=== PATIENT | female | born 1990 | race African-American/Black ===

== ENCOUNTER 2016-08-10 04:48 | Emergency (ER) | payer SELFPAY ==
[2016-08-10 04:55] VITALS: BMI 27.9
[2016-08-10] MEDS ORDERED: ZOFRAN INJ 4 MG VIAL ONE (04:58)
[2016-08-10] MEDS ORDERED: MORPHINE SULFATE INJ 4 MG ONE (04:58)
--- NOTE | 2016-08-10 04:59 | DR.GENAD ---
HPI - PCP Primary Care Physician: ARTURO - HPI Comment HPI Comment: PATIENT WAS FRYING [place] [employer]RIES WHEN SHE BURN THE BACK OF HER HAND WITH HOT GREASE. BLISTERS PRESENT. TD NOT UTD. - Complaint/Symptoms Chief Complaint Doctors Comments: GREASE BURN TO LEFT HAND LESS THAN AN HOUR AGO. Chief Complaint:: HOT GREASE ON LEFT HAND ABOUT 30 MINS AGO - Nurses notes reviewed Nurses Notes Review: Yes - Source History Provided: Patient - Mode of Arrival Mode of Arrival: Ambulatory - Timing Onset of Chief Complaint: 08/10/16 Came on: Suddenly - Duration Duration: Constant Duration: Minutes - Severity Severity: Moderate PMH - PMH Past Medical History: No Past Medical History: Hypertension Past Surgical History: No Surgical History: Unknown - Family History History of Family Medical Conditions: Yes Family Medical History: Cancer - Social History Does patient currently use any type of tobacco product: No Have you used tobacco products in the last 12 months: No Type of Tobacco Use: None Does any household member use tobacco: No Alcohol Use: None Do you use any recreational Drugs:: No Lives With: Family Lives Where: Home - infectious screening In the last 2 months have you had wt loss of >10#?: NO Have you had fever, night sweats or hemotysis?: No Have you traveled outside the country in the last 6 months?: No Isolation: Standard ROS - Review of Systems Constitutional: No Symptoms Reported Eyes: No Symptoms Reported ENTM: No Symptoms Reported Respiratoy: No Symptoms Reported Cardiovascular: No Symptoms Reported Gastrointestinal/Abdominal: No Symptoms Reported Genitourinary: No Symptoms Reported Neurological: No Symptoms Reported Musculoskeletal: Left, Hand (2ND DEGREE BURN BACK OF LEFT HAND.) Integumentary: Other (2ND DEGREE BURN BACK OF LEFT HAND.) Hematologic/Lymphatic: No Symptoms Reported Endocrine: No Symptoms Reported All Other Systems: Reviewed and Negative PE - Vital Signs Vitals: Temperature 98.6 F Pulse Rate 105 Respiratory Rate 24 Blood Pressure 128/81 O2 Sat by Pulse Oximetry 100 - General Limitations: No Limitations General Appearance: Alert - Head Head Exam: Normal Inspection - Eyes Eye exam: Normal Appearance - ENT ENT Exam: Normal Exam External Ear Exam: Normal External Inspection Mouth Exam: Normal Inspection Throat Exam: Normal Inspection - Neck Neck Exam: Trachea Midline - Chest Chest Inspection: Symmetric Chest Wall Rise - Respiratory Respiratory Exam: Bilateral Clear to Auscultation - Cardiovascular Cardiovascular Exam: Regular Rate, Normal Rhythm, Normal Heart Sounds - Abdominal Exam Abdominal Exam: Normal Inspection - Extremities Extremities Exam: Tenderness (2ND DEGREE BURN BACK OF LEFT HAND.) - Back Back Exam: Normal Inspection - Neurologic Neurological Exam: Alert, Oriented X3 - Psychiatric Psychiatric Exam: Anxious - Skin Skin Exam: Erythema, Other (2ND DEGREE BURN LEFT HAND.) MDM - Differential Diagnosis Differential Diagnosis: 2ND DEGREE BURN BACK LEFT HAND. Course - Consultation Consultation Comments: [facility] WILL SEE PATIENT TODAY 10: 30AM AT THEIR CLIN[facility] IN [place]. - Education/Counseling Education/Counseling: Patient, Education Educated On: Diagnosis, Needs for Follow Up - Diagnosis Discharge Problem: Second degree burn of left hand - Discharge Plan Disposition: 01 HOME, SELF-CARE Condition: Stable Prescriptions: Hydrocodone-Acet 7.5 mg/325 mg [[place] 7.5/325 mg Tab] 1 tab PO Q6H PRN #20 tab PRN Reason: Pain - Follow ups/Referrals Follow ups/Referrals: NFD,None [Primary Care Provider] - 3 days - Instructions Instructions: Second-Degree Burn, Burn Care, Blisters Additional Instructions: RETURN TO ED IF WORSE. [facility] IN [place] WILL SEE YOU BETWEEN 8am- 10am this morning, nothing by mouth till your evaluation.
[2016-08-10] MEDS ORDERED: ZOFRAN INJ 4 MG VIAL IM ONE (05:04)
[2016-08-10] MEDS ORDERED: MORPHINE SULFATE INJ 4 MG IM ONE (05:04)
[2016-08-10 05:06] VITALS: BP 128/81
[2016-08-10] MEDS ORDERED: NORCO 7.5/325 MG TAB PO ONE (05:36)
[2016-08-10] MEDS ORDERED: NORCO 7.5/325 MG TAB ONE (05:37)
== END 2016-08-10 05:49 | disposition home or self-care (01) ==
LOC: ER 05:00
PROC: 2W29X4Z Dressing of Left Upper Extremity using Bandage (ICD-10-PCS; principal; 2016-08-10)
DX: T23.202A Burn of second degree of left hand, unspecified site, initial encounter (principal); X12.XXXA Contact with other hot fluids, initial encounter; Y92.9 Unspecified place or not applicable
CPT/HCPCS: 16020; 96372; 99282; J2270; J2405

== ENCOUNTER 2019-06-05 17:44 | Inpatient (IN) ==
[2019-06-05 18:10] LABS: APPEARANCE,URINE CLEAR (CLEAR); BILIRUBIN,URINE NEGATIVE (NEGATIVE); BLOOD/HEMOGLOBIN,URINE NEGATIVE (NEGATIVE); COLOR,URINE YELLOW (YELLOW); GLUCOSE, URINE NEGATIVE (NEGATIVE); KETONES,URINE 3+ (NEGATIVE); LEUKOCYTE ESTERASE ,URINE 2+ (NEGATIVE); NITRITES,URINE NEGATIVE (NEGATIVE); PH,URINE 6.5 (5.0 - 8.0); PROTEIN,URINE 2+ (NEGATIVE); UROBILINOGEN,URINE NORMAL (NORMAL)
[2019-06-05 18:17] LABS: AMNISURE ROM TEST THERE IS A RUPTURE (NO RUPTURE)
[2019-06-05 18:19] LABS: BACTERIA,URINE 1+ /HPF (NEGATIVE); SQUAMOUS EPITHELIAL CELL,UR MODERATE /HPF (NEGATIVE)
[2019-06-05] MEDS ORDERED: FENTANYL INJ 100 mcg ONE (18:45)
[2019-06-05] MEDS ORDERED: D5LR 1L W PITOCIN 10 UNITS/L 10 UNITS/1,000 ML BAG IV ONE (18:45)
[2019-06-05] MEDS ORDERED: PITOCIN ONE (18:46)
[2019-06-05] MEDS ORDERED: D5 1/2 NS 1L W PITOCIN 20 UNITS/L 20 UNITS/1,000 ML BAG IV ONE (18:46)
[2019-06-05] MEDS ORDERED: NAROPIN EPIDURAL 0.2% + FENTANYL 90MCG 60 ML EPI ONE (18:46)
[2019-06-05] MEDS ORDERED: D5 1/2 NS 1000 ML 1,000 ML IV ONE (18:46)
[2019-06-05] MEDS ORDERED: D5LR 1L W PITOCIN 10 UNITS/L 10 UNITS/1,000 ML BAG IV PRN (19:18)
[2019-06-05] MEDS ORDERED: PITOCIN IVP ONE (19:18)
[2019-06-05] MEDS ORDERED: PHENERGAN INJ 25 MG IM PRN (19:18)
[2019-06-05] MEDS ORDERED: NUBAIN INJ 200 MG VIAL MULTIDOSE IVP PRN (19:18)
[2019-06-05] MEDS ORDERED: REGLAN INJ 10 MG VIAL IVP PRN (19:18)
[2019-06-05] MEDS ORDERED: MORPHINE SULFATE INJ 2 MG INJ IVP PRN (19:18)
[2019-06-05 19:31] LABS: BASOPHILS # (AUTO) 0.2 X10^3/uL (0.0-0.1); BASOPHILS % (AUTO) 3.1 % (0.2-1.0); EOSINOPHILS % (AUTO) 0.9 % (0.9-2.9); HEMATOCRIT 35.7 % (36.0-47.0); HEMOGLOBIN 11.9 g/dL (12.0-16.0); LYMPHOCYTES # (AUTO) 0.9 X10^3/uL (1.3-2.9); LYMPHOCYTES % (AUTO) 17.8 % (21.0-51.0); MEAN CORPUSCULAR HGB CONC 33.3 g/dL (33.0-35.0); MEAN CORPUSCULAR VOLUME 87.1 fL (80.0-100.0); MEAN PLATELET VOLUME 9.1 fL (7.4-11.0); MONOCYTES # (AUTO) 0.1 x10^3/uL (0.3-0.8); MONOCYTES % (AUTO) 2.6 % (0.0-13.0); NEUTROPHILS # (AUTO) 3.6 x10^3/uL (2.2-4.8); NEUTROPHILS % (AUTO) 75.6 % (42.0-75.0); PLATELET COUNT 265 X10^3/uL (150.0-450.0); RED CELL DISTRIBUTION WIDTH 16.6 % (11.6-16.5); WHITE BLOOD COUNT 4.8 X10^3/uL (3.6-10.0)
[2019-06-05 19:33] LABS: BLOOD UREA NITROGEN 6 mg/dL (7-18); CARBON DIOXIDE 20.5 mmol/L (21-32); CHLORIDE 104 mmol/L (98-107); COR NA(FOR HYPERGLY) 137 mmol/L (136-145); CREATININE 0.84 mg/dL (0.55-1.02); SODIUM 136 mmol/L (136-145); eGFR NON BLACK RACES > 60 (>60)
--- NOTE | 2019-06-05 19:33 | DR.OB ---
OB Quick Note - Assessment/Plan Assessment/Plan: L&D 06/05/19 at 7:30pm S-No complaint. O-Afebrile,VSS IJU=174 with good LTV, +accel, no decel. CTX=irregular, mild. CVX=4cm/50%/-1/VTX with SROM (clear fluid). IUPC and FSE placed. A-IUP at 38 1/7 weeks with SROM P-Begin pitocin induction F/U labs Anticipate with PP BTL
[2019-06-06] MEDS ORDERED: NAROPIN EPIDURAL 0.2% + FENTANYL 90MCG 60 ML EPI ONE (01:05)
[2019-06-06] MEDS: D5 1/2 NS 1000 ML 1,000 ML IV SCH ×3 (02:14→13:43)
[2019-06-06] MEDS ORDERED: PHENERGAN INJ 25 MG IM PRN (05:25)
--- NOTE | 2019-06-06 05:25 | DR.OB ---
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 Head delivered over intact perineum. No nuchal cord. Nose and mouth bulb suctioned. Body delivered over intact perineum. Cord clamped x 2 and cut. handed to attendant. Cord sent for gases. Placenta delivered spontaneously / intact / 3 vessel cord. No CVX / vaginal / perineal tears. Viable male , VTX/OA, wt=7'11" and 9/10, stable to NBN. Mother stable to RR. [id number]=[id number]. Will hold for PP BTL.
[2019-06-06] MEDS ORDERED: D5 1/2 NS 1000 ML 1,000 ML with PITOCIN 20 UNITS IV SCH ×2 (06:00)
[2019-06-06] MEDS ORDERED: DERMOPLAST SPRAY TOP PRN (06:42)
[2019-06-06] MEDS: MOTRIN TAB 800 MG PO PRN ×2 (08:05→16:05)
[2019-06-06] MEDS: PRENATAL PLUS PO SCH (09:10)
[2019-06-07 06:08] LABS: HEMATOCRIT 30.7 % (36.0-47.0); HEMOGLOBIN 10.3 g/dL (12.0-16.0)
[2019-06-07] MEDS: MOTRIN TAB 800 MG PO PRN (07:51)
[2019-06-07] MEDS: PRENATAL PLUS PO SCH (08:25)
[2019-06-07 09:59] VITALS: BP 116/70
== END 2019-06-07 11:50 | disposition home or self-care (01) | DRG 807 ==
LOC: ER 17:48 → LD 18:38 → MED/SURG 06-06 06:05
PROVIDERS: ADMIT Specialist; ATTEND Specialist
DX: Z3A.38 38 weeks gestation of pregnancy; Z30.2 Encounter for sterilization; Z37.0 Single live birth; O99.613 Diseases of the digestive system complicating pregnancy, third trimester
CPT/HCPCS: 36415; 59409; 80048; 81001; 84112; 85014; 85018; 85025; 86592; 86850; 86900; 86901; 87086; 96365; 99284; A4216; A4222; J2590; J3010; S0197; S5010

== ENCOUNTER 2020-04-13 06:19 | Inpatient (IN) ==
[2020-04-13] MEDS ORDERED: PITOCIN ONE (06:32)
[2020-04-13] MEDS ORDERED: D5 1/2 NS 1000 ML 1,000 ML IV ONE (06:32)
[2020-04-13] MEDS ORDERED: BETADINE SOLN ONE (06:32)
[2020-04-13] MEDS ORDERED: D5 1/2 NS 1L W PITOCIN 20 UNITS/L 0 UNITS/0 ML BAG IV ONE (06:33)
[2020-04-13] MEDS ORDERED: D5LR 1L W PITOCIN 10 UNITS/L 10 UNITS/1,000 ML BAG IV ONE (06:33)
[2020-04-13] MEDS: D5LR 1L W PITOCIN 10 UNITS/L 10 UNITS/1,000 ML BAG IV PRN (07:00)
[2020-04-13] MEDS ORDERED: NAROPIN EPIDURAL 0.2% 0 ML ONE (07:03)
[2020-04-13] MEDS ORDERED: FENTANYL INJ 100 mcg ONE ×3 (07:03→08:39)
[2020-04-13] MEDS ORDERED: LR 1000 ML IV 1,000 ML IV ONE ×2 (07:03→09:59)
--- NOTE | 2020-04-13 07:04 | DR.OB ---
OB Quick Note - Assessment/Plan Assessment/Plan: L&D 04/13/20 at 7:00am S-No complaint. O-Afebrile,VSS WBN=182 with good LTV, +accel, no decel. CTX=none CVX=3cm/50%/-1/VTX AROM with clear fluid. IUPC and FSE placed. A-IUP at 39 3/7 weeks for induction Multiparity P-Begin pitocin induction Anticipate with PP BTL planned.
[2020-04-13] MEDS ORDERED: NUBAIN INJ 200 MG VIAL MULTIDOSE IVP PRN (07:09)
[2020-04-13] MEDS ORDERED: REGLAN INJ 10 MG VIAL IVP PRN ×2 (07:09→13:05)
[2020-04-13] MEDS ORDERED: PHENERGAN INJ 25 MG IM PRN ×3 (07:09→13:05)
[2020-04-13] MEDS ORDERED: PITOCIN IVP ONE (07:09)
[2020-04-13] MEDS ORDERED: MORPHINE SULFATE INJ 2 MG INJ IVP PRN (07:09)
[2020-04-13] MEDS ORDERED: D5 1/2 NS 1000 ML 1,000 ML IV SCH (07:09)
[2020-04-13 07:36] LABS: BASOPHILS % (AUTO) 0.1 % (0.2-1.0); EOSINOPHILS % (AUTO) 0.3 % (0.9-2.9); HEMATOCRIT 32.8 % (36.0-47.0); HEMOGLOBIN 10.6 g/dL (12.0-16.0); LYMPHOCYTES # (AUTO) 0.8 X10^3/uL (1.3-2.9); LYMPHOCYTES % (AUTO) 17.8 % (21.0-51.0); MEAN CORPUSCULAR HEMOGLOBIN 27.1 pg (27.0-34.0); MEAN CORPUSCULAR HGB CONC 32.2 g/dL (33.0-35.0); MEAN CORPUSCULAR VOLUME 84.2 fL (80.0-100.0); MEAN PLATELET VOLUME 8.4 fL (7.4-11.0); MONOCYTES # (AUTO) 0.3 x10^3/uL (0.3-0.8); MONOCYTES % (AUTO) 6.5 % (0.0-13.0); NEUTROPHILS # (AUTO) 3.4 x10^3/uL (2.2-4.8); NEUTROPHILS % (AUTO) 75.3 % (42.0-75.0); PLATELET COUNT 262 X10^3/uL (150.0-450.0); RED BLOOD COUNT 3.89 X10^6/uL (3.5-5.4); RED CELL DISTRIBUTION WIDTH 15.7 % (11.6-16.5); WHITE BLOOD COUNT 4.5 X10^3/uL (3.6-10.0)
[2020-04-13 07:45] LABS: ALANINE AMINOTRANSFERASE 14 Units/L (12-78); ALBUMIN 2.4 g/dL (3.4-5.0); ALKALINE PHOSPHATASE 151 Units/L (46-116); ASPARTATE AMINO TRANSFERASE 12 Units/L (15-37); BLOOD UREA NITROGEN 7 mg/dL (7-18); CALCIUM 8.8 mg/dL (8.5-10.1); CARBON DIOXIDE 21.1 mmol/L (21-32); CHLORIDE 105 mmol/L (98-107); COR CA(FOR HYPOALB) 10.1 mg/dL (8.5-10.1); CREATININE 0.67 mg/dL (0.55-1.02); SODIUM 137 mmol/L (136-145); TOTAL PROTEIN 6.7 g/dL (6.4-8.2); eGFR NON BLACK RACES > 60 (>60)
[2020-04-13 07:47] LABS: APPEARANCE,URINE CLOUDY (CLEAR); BACTERIA,URINE 2+ /HPF (NEGATIVE); BILIRUBIN,URINE NEGATIVE (NEGATIVE); BLOOD/HEMOGLOBIN,URINE 1+ (NEGATIVE); COLOR,URINE YELLOW (YELLOW); GLUCOSE, URINE NEGATIVE (NEGATIVE); KETONES,URINE NEGATIVE (NEGATIVE); LEUKOCYTE ESTERASE ,URINE 3+ (NEGATIVE); NITRITES,URINE NEGATIVE (NEGATIVE); PROTEIN,URINE 1+ (NEGATIVE); RBC,URINE 0-2 /HPF (0-3); SQUAMOUS EPITHELIAL CELL,UR FEW /HPF (NEGATIVE); UROBILINOGEN,URINE NORMAL (NORMAL)
[2020-04-13] MEDS ORDERED: NAROPIN EPIDURAL 0.2% 100 ML ONE (08:40)
[2020-04-13] MEDS ORDERED: REGLAN INJ 10 MG VIAL ONE (09:55)
[2020-04-13] MEDS ORDERED: XYLOCAINE 2% and EPINEPHRINE 1:100,000 ONE (11:48)
[2020-04-13] MEDS ORDERED: NS 1000 ML 0 ML ONE (11:48)
[2020-04-13] MEDS ORDERED: ANCEF 1 GRAM IV PREMIX* 2 G/100 ML BAG IV ONE (11:59)
[2020-04-13] MEDS ORDERED: MOTRIN TAB 800 MG PO PRN (12:07)
--- NOTE | 2020-04-13 12:07 | DR.OB ---
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 Head delivered over intact perineum. No nuchal cord. Nose and mouth bulb suctioned. Body delivered over intact perineum. Cord clamped x 2 and cut. Infant handed to attendant. Cord sent for gases. Placenta delivered spontaneously / intact / 3 vessel cord. No CVX / vaginal / perineal tears noted. Viable male , VTX/OA, wt=6'12" and 8/9, stable to NBN. Mother stable to RR. MFH=[id number].
[2020-04-13] MEDS ORDERED: XYLOCAINE 2 % (PLAIN) ONE (12:20)
[2020-04-13] MEDS ORDERED: BENADRYL INJ 50 MG VIAL IVP PRN (13:05)
[2020-04-13] MEDS ORDERED: DILAUDID INJ IVP PRN (13:05)
[2020-04-13] MEDS ORDERED: ZOFRAN INJ 4 MG VIAL IVP PRN (13:05)
[2020-04-13] MEDS ORDERED: STERILE WATER IRRIGATION IR ONE (13:38)
[2020-04-13] MEDS ORDERED: AMBIEN PO PRN ×2 (13:46)
[2020-04-13] MEDS ORDERED: MILK OF MAGNESIA PO PRN ×2 (13:46)
[2020-04-13] MEDS ORDERED: MYLICON TAB 80 MG CHEW PO PRN (13:46)
[2020-04-13] MEDS ORDERED: DERMOPLAST PAIN RELIEF SPRAY TOP PRN (13:46)
[2020-04-13] MEDS ORDERED: ADACEL or BOOSTRIX TDaP VACCINE IM ONE (13:46)
[2020-04-13] MEDS: D5 1/2 NS 1000 ML 1,000 ML with PITOCIN 20 UNITS IV SCH ×2 (15:15)
[2020-04-13] MEDS: MOTRIN TAB 800 MG PO PRN ×2 (15:34→23:29)
[2020-04-13] MEDS: PERCOCET TAB 5/325 MG PO PRN (20:15)
[2020-04-14] MEDS: PERCOCET TAB 5/325 MG PO PRN ×3 (00:38→14:37)
[2020-04-14 05:35] LABS: HEMATOCRIT 32.1 % (36.0-47.0); HEMOGLOBIN 10.2 g/dL (12.0-16.0)
[2020-04-14] MEDS: D5 1/2 NS 1000 ML 1,000 ML with PITOCIN 20 UNITS IV SCH ×4 (06:17→14:37)
[2020-04-14] MEDS: MOTRIN TAB 800 MG PO PRN (07:26)
[2020-04-14] MEDS: BACTROBAN TOPICAL OINT TOP SCH ×2 (09:00→14:37)
[2020-04-14] MEDS ORDERED: PROTONIX TAB 40 MG PO SCH (09:00)
[2020-04-14] MEDS ORDERED: PRENATAL PLUS PO SCH (09:00)
[2020-04-14 12:25] VITALS: BP 125/74
== END 2020-04-14 15:00 | disposition home or self-care (01) | DRG 798 ==
LOC: LD 06:19 → MED/SURG 15:09
PROVIDERS: ADMIT Specialist; ATTEND Specialist